=== PATIENT | male | born 1985 | race Caucasian/White ===

== ENCOUNTER 2020-05-25 10:37 | Emergency (ER) | payer MEDICAID ==
[~2020-05-25] VITALS: Ht 180.3 cm; Wt 99.0 kg
[2020-05-25] MEDS ORDERED: ACETAMINOPHEN 325MG TABLET PO ONE (11:45)
[2020-05-25] MEDS ORDERED: TOPUD MT (12:36)
[2020-05-25 12:44] VITALS: BP 142/85
== END 2020-05-25 12:46 | disposition home or self-care (01) ==
LOC: ER 10:37
DX: R51.9 Headache, unspecified (principal); Z88.8 Allergy status to other drugs, medicaments and biological substances; Z88.9 Allergy status to unspecified drugs, medicaments and biological substances
CPT/HCPCS: 99282

== ENCOUNTER 2020-06-01 09:51 | Emergency (ER) | payer MEDICAID ==
[~2020-06-01] VITALS: Ht 180.3 cm; Wt 97.0 kg
[~2020-06-01 09:51] MED LIST: TOPUD MT
[2020-06-01] MEDS ORDERED: KETOROLAC 30MG/ML VIAL IM ONE (10:30)
[2020-06-01] MEDS ORDERED: METOCLOPRAMIDE HCL 10MG TABLET PO ONE (10:30)
[2020-06-01] MEDS ORDERED: DIPHENHYDRAMINE 25MG CAPSULE PO ONE (10:30)
[2020-06-01] MEDS ORDERED: DIPH25CA83 MT (11:27)
[2020-06-01] MEDS ORDERED: ASPI-1153 PO (11:27)
[2020-06-01 11:35] VITALS: BP 139/84
== END 2020-06-01 11:36 | disposition home or self-care (01) ==
LOC: ER 09:51
DX: R51.9 Headache, unspecified (principal); H53.8 Other visual disturbances; Z88.8 Allergy status to other drugs, medicaments and biological substances; Z88.9 Allergy status to unspecified drugs, medicaments and biological substances
CPT/HCPCS: 96372; 99283; J1885; J8597; Q0163

== ENCOUNTER 2020-06-01 16:12 | Emergency (ER) | payer MEDICAID ==
[~2020-06-01] VITALS: Ht 180.3 cm; Wt 100.0 kg
[~2020-06-01 16:12] MED LIST changes: +ASPI-1153 PO; +DIPH25CA83 MT
[2020-06-01] MEDS ORDERED: KETOROLAC 30MG/ML VIAL IM ONE (16:30)
[2020-06-01 17:41] VITALS: BP 148/88
== END 2020-06-01 17:42 | disposition home or self-care (01) ==
LOC: ER 16:12
DX: R51.9 Headache, unspecified (principal); F31.9 Bipolar disorder, unspecified; Z88.8 Allergy status to other drugs, medicaments and biological substances; Z88.9 Allergy status to unspecified drugs, medicaments and biological substances; Z79.82 Long term (current) use of aspirin
CPT/HCPCS: 96372; 99283; J1885; Z7610

== ENCOUNTER 2021-05-01 18:17 | Emergency (ER) | payer MEDICAID ==
[~2021-05-01] VITALS: Ht 180.3 cm; Wt 113.0 kg
[2021-05-01 18:37] VITALS: BP 143/77
[2021-05-01] MEDS ORDERED: ONDANSETRON HCL 4MG/2ML INJ IV STA (20:27)
[2021-05-01] MEDS ORDERED: SODIUM CHLORIDE 0.9% 1,000 ML IV ONE (20:30)
== END 2021-05-01 21:08 | disposition left against medical advice (07) ==
LOC: ER 18:17
DX: R11.10 Vomiting, unspecified (principal); E86.0 Dehydration
CPT/HCPCS: 99281; J7030